=== PATIENT | female | born 1995 ===

== ENCOUNTER 2021-02-01 09:02 | Inpatient (IN) | payer SELFPAY ==
--- NOTE | 2021-02-01 12:26 | Anesthesia Consultation ---
Anesthesia Consult and Med Hx Date of service: 02/01/21 - Airway Anesthetic Teeth Evaluation: Good ROM Head & Neck: Adequate Mental/Hyoid Distance: Adequate Mallampati Class: Class II Intubation Access Assessment: Probably Good - Pulmonary Exam CTA: Yes - Cardiac Exam Cardiac Exam: RRR - Pre-Operative Health Status ASA Pre-Surgery Classification: ASA3 Proposed Anesthetic Plan: Spinal - Pulmonary Hx Asthma: No COPD: No Hx Pneumonia: No - Cardiovascular System Hx Hypertension: No - Central Nervous System Hx Seizures: No Hx Psychiatric Problems: No - Endocrine Hx Renal Disease: No Hx End Stage Renal Disease: No Hx Hypothyroidism: No Hx Hyperthyroidism: No - Hematic Hx Anemia: No Hx Sickle Cell Disease: No - Other Systems Hx Alcohol Use: No Hx Obesity: Yes
--- NOTE | 2021-02-01 12:26 | Anesthesia Day of Surgery ---
Anesthesia Day of Surgery - Day of Surgery Patient Examined: Yes Patient H&P Reviewed: Yes Patient is NPO: Yes
[2021-02-01] MEDS ORDERED: OXYTOCIN DRIP 30 UNITS/500 ML BAG IV SCH (13:00)
[2021-02-01] MEDS ORDERED: FAMOTIDINE 20 MG/2 ML INJ IV ONE (13:14)
[2021-02-01] MEDS ORDERED: BICITRA ORAL LIQD 30ML PO ONE (13:14)
[2021-02-01] MEDS ORDERED: METOCLOPRAMIDE 10 MG/2 ML INJ IV ONE (13:14)
[2021-02-01] MEDS ORDERED: ceFAZolin/Water 2 GM/20 ML 2 GM/20 ML SYRINGE IV ONE (13:51)
[2021-02-01] MEDS ORDERED: dexAMETHasone 20 MG/5 ML VIAL ONE (14:03)
[2021-02-01] MEDS ORDERED: SODIUM CHLORIDE 0.9% 100 ML ONE (14:03)
[2021-02-01] MEDS ORDERED: PHENYLEPHRINE 10 MG/1 ML INJ SDV ONE (14:03)
[2021-02-01] MEDS ORDERED: BUPIVACAINE/PF (0.5%) 5 MG/1 ML 30 ML VIAL INFILTRATI ONE (14:03)
[2021-02-01] MEDS ORDERED: ONDANSETRON 4 MG/2 ML INJ ONE (14:03)
[2021-02-01] MEDS: LACTATED RINGERS 1,000 ML IV SCH ×2 (14:03→17:21)
[2021-02-01] MEDS ORDERED: KETOROLAC 30 MG/1 ML INJ ONE (14:03)
--- NOTE | 2021-02-01 14:12 | History and Physical Report ---
History of Present Illness Date of examination: 02/01/21 Date of admission: 02/01/21 09:02 Chief complaint: elective repeat section at term Past History Past Surgical History: section Family/Genetic History: none Social history: no significant social history - Obstetrical History Expected Date of Delivery: 02/07/21 Actual Gestation: 39 Week(s) 1 Day(s) : 2 Para: 1 Medications and Allergies Allergies Allergy/AdvReac Type Severity Reaction Status Date / Time No Known Allergies Allergy Unverified 02/01/21 11:12 Home Medications Medication Instructions Recorded Confirmed Last Taken Type Ibuprofen [Motrin] 600 mg PO Q8H PRN #60 tablet 02/01/21 Unknown Rx oxyCODONE /ACETAMINOPHEN [Percocet 1 tab PO Q6HR PRN #20 tablet 02/01/21 Unknown Rx 5/325] Active Meds: Active Medications Lactated Ringer's (Lactated Ringers) 1,000 mls @ 2,250 mls/hr IV PREOP ALLYSSA Stop: 02/02/21 14:42 Last Admin: 02/01/21 14:03 Dose: 2,250 mls/hr Documented by: Oxytocin/Sodium Chloride (Pitocin/Ns 30 Unit/500ml) 30 units in 500 mls @ 0 mls/hr IV TITR ALLYSSA; Protocol - Vital Signs Vital signs: Vital Signs Pulse Pulse Ox 87 99 02/01/21 10:04 02/01/21 10:04 Temp Pulse Resp BP Pulse Ox 98.4 F 83 16 120/79 98 02/01/21 10:24 02/01/21 13:49 02/01/21 10:24 02/01/21 10:24 02/01/21 13:49 - Physical Exam Breasts: Positive: deferred Cardiovascular: Regular rate Lungs: Positive: Clear to auscultation Abdomen: Positive: normal appearance, soft, normal bowel sounds Vulva: both: normal Vagina: Positive: normal moisture Uterus: Positive: enlarged (39cm) Adnexa: both: normal Anus/Rectum: Positive: normal perianal skin Extremities: Positive: normal Deep Tendon Reflex Grade: Normal +2 - Obstetrical FHR: category 1 Results All other labs normal. 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
--- NOTE | 2021-02-01 14:13 | Procedure Note ---
OB Delivery Note - Delivery Date of Delivery: 02/01/21 Surgeon: KULWINDER CAREY - Section Postop diagnosis: same section procedure: repeat low transverse Disposition: PACU Complications: none Narrative: Preop diagnosis: IUP at 39.1 weeks, previous sectionx1 for elective repeat section Postop diagnosis: Same,delivered Procedure: Repeat low transverse section via Pfannenstiel incision Surgeon: Dr. Kulwinder Carey Anesthesia spinal Complications none EBL 1000ml IV fluids 1000mL Urine output 200mL, clear Drains Fournier to gravity Findings: Viable male with weight 4394gm and 8/9, normal uterus tubes and ovaries bilaterally Procedure: Patient was consented in OB triage, taken to the operating room where she received excellent spinal anesthesia. She was then placed in the dorsal supine position with a leftward tilt. The abdomen was prepped and draped in a sterile fashion, and a timeout was verified. Adequate anesthesia was confirmed prior to the skin incision. A Pfannenstiel skin incision was made with a scalpel taken down to the underlying structures and the fascia was in cised in the midline. The incision was extended laterally with curved Alcantara scissors, the superior and inferior aspects of the fascial incisions were grasped with Svitlana clamps and the rectus muscles dissected sharply. The abdomen was entered bluntly in the midline carried down inferiorly with good visualization of the bladder. The vesicouterine peritoneum was tented with Austrian forceps and incised in the midline with Metzenbaum scissors and the vesicouterine peritoneum taken down sharply. The uterine incision was then made sharply with a scalpel. The inferior and superior aspect of the uterine incisions were extended bluntly, the baby's head was delivered atraumatically. The remainder of the delivery was uncomplicated, no nuchal cord. The cord was clamped and cut and baby handed to waiting NICU team. An intact placenta with three-vessel cord delivered manually. The uterus was then cleared of all clots and debris and the uterus exteriorized. The uterine incision was closed in 2 layers of 0 vicryl with excellent hemostasis. The abdomen was then irrigated with warm normal saline and the uterus placed back into the abdomen atraumatically. A second look at the uterine incision assured hemostasis. The peritoneum was closed with 3-0 Vicryl, the rectus muscles approximated with 3-0 Vicryl, and the fascia closed with 0 Vicryl in the usual fashion. The subcuticular structures were closed with interrupted sutures of 3-0 Vicryl and the skin closed with 4-0 Monocryl. A pressure dressing was applied. All sponge needle and instrument counts were correct x2. There were no complications. Mom and baby stable to PACU. EBL 1000 mL Sho Carey MD - Infant A at 1 minute: 8 at 5 minutes: 9 Infant Gender: Male (4394gms)
[2021-02-01 14:15] LABS: Basophils % (Auto) 0.3 % (0.0-1.8); Eosinophils # (Auto) 0.1 K/mm3 (0.0-0.4); Hematocrit 39.7 % (30.3-42.9); Hemoglobin 12.8 gm/dl (10.1-14.3); Lymphocytes # (Auto) 1.4 K/mm3 (1.2-5.4); Lymphocytes % (Auto) 27.4 % (13.4-35.0); Mean Corpuscular HGB Conc 32 % (30-34); Mean Corpuscular Volume 94 fl (79-97); Monocytes # (Auto) 0.5 K/mm3 (0.0-0.8); Monocytes % (Auto) 8.9 % (0.0-7.3); Platelet Count 160 K/mm3 (140-440); Red Blood Count 4.24 M/mm3 (3.65-5.03); Red Cell Distribution Width 13.8 % (13.2-15.2)
[2021-02-01] MEDS ORDERED: KETAMINE/STERILE WATER 50 MG/ML SYRINGE ONE (15:30)
[2021-02-01] MEDS ORDERED: METHYLERGONOVINE MALEATE 0.2 MG/ML VIAL IM ONE (15:48)
[2021-02-01] MEDS ORDERED: MIDAZOLAM 2 MG/2 ML INJ ONE (15:54)
[2021-02-01] MEDS ORDERED: HYDROcodone/ACETAMINOPHEN 5-325 MG TAB PO PRN (16:31)
[2021-02-01] MEDS ORDERED: IBUPROFEN 600 MG TAB PO PRN (16:31)
[2021-02-01] MEDS ORDERED: KETOROLAC 30 MG/1 ML INJ IV PRN ×2 (16:31)
[2021-02-01] MEDS ORDERED: NALOXONE 0.4 MG/1 ML INJ IV PRN (16:31)
[2021-02-01] MEDS ORDERED: WITCH HAZEL/ GLYCERIN PAD TP PRN (16:31)
[2021-02-01] MEDS ORDERED: LANOLIN/ZINC/DIMETHICONE (LANSINOH) 7 GM TP PRN (16:31)
[2021-02-01] MEDS ORDERED: MORPHINE 4 MG/1 ML INJ IV PRN (16:31)
--- NOTE | 2021-02-02 05:37 | Progress Note ---
Assessment and Plan POD#1 C/Section doing well 1. Routine post op care, encouraged to ambulate in room 2. For dressing removal tomorrow 3. CBC to be drawn this am All questions encouraged and answered Subjective Date of service: 02/02/21 Principal diagnosis: POD#1 C/S Interval history: Pt has no complaints. Pt has passed flatus, voided without difficulty, vag bleed less than a period and pain controlled with meds. Objective - Constitutional Vitals: Vital Signs - 12hr 02/01/21 02/01/21 02/01/21 18:00 20:10 22:55 Temperature 98.4 F 97.4 F L Pulse Rate 61 62 Respiratory 18 18 20 Rate Blood Pressure 116/74 Blood Pressure 118/65 [Right] O2 Sat by Pulse 98 100 Oximetry O2 Sat by Pulse 98 Oximetry [ Anterior Bilateral Throughout] 02/02/21 02/02/21 00:57 04:59 Temperature 97.9 F 97.8 F Pulse Rate 71 69 Respiratory 20 20 Rate Blood Pressure 99/56 107/72 Blood Pressure [Right] O2 Sat by Pulse 97 97 Oximetry O2 Sat by Pulse Oximetry [ Anterior Bilateral Throughout] General appearance: Present: no acute distress - Respiratory Respiratory effort: normal - Cardiovascular Rhythm: regular Extremities: No edema - Gastrointestinal General gastrointestinal: Present: soft, non-tender, other (Dressing C/D/I) - Genitourinary Female genitourinary: other (Lochia scant; Fundus firm 1cm below umbilicus) - Integumentary Integumentary: warm, dry - Neurologic Neurologic: moves all extremities - Psychiatric Psychiatric: cooperative - Labs CBC & Chem 7: 02/01/21 10:25 Labs: Abnormal lab results 02/01/21 Range/Units 10:25 [place] % (Auto) 8.9 H (0.0-7.3) % Medications & Allergies - Medications Allergies/Adverse Reactions: Allergies No Known Allergies Allergy (Unverified 02/01/21 11:12) Home Medications: Home Medications Medication Instructions Recorded Confirmed Last Taken Type Ibuprofen [Motrin] 600 mg PO Q8H PRN #60 tablet 02/01/21 Unknown Rx oxyCODONE /ACETAMINOPHEN [Percocet 1 tab PO Q6HR PRN #20 tablet 02/01/21 Unknown Rx 5/325] Active Medications: Generic Name Dose Route Start Last Admin Trade Name Freq PRN Reason Stop Dose Admin Hydrocodone Bitart/Acetaminophen 1 each 02/01/21 16:31 Hydrocodone/Acetaminophen 5-325 Mg Tab PO Q6H PRN Pain, Moderate (4-6) Lactated Ringer's 1,000 mls @ 2,250 mls/hr 02/01/21 14:15 02/01/21 17:21 Lactated Ringers IV 02/02/21 14:42 125 mls/hr PREOP ALLYSSA Administration Oxytocin/Sodium Chloride 30 units in 500 mls @ 0 mls/hr 02/01/21 13:00 Pitocin/Ns 30 Unit/500ml IV TITR ALLYSSA Protocol As Directed Ibuprofen 800 mg 02/01/21 16:31 Ibuprofen 800 Mg Tab PO Q6H PRN Pain, Moderate (4-6) Ibuprofen 600 mg 02/01/21 16:31 Ibuprofen 600 Mg Tab PO Q6H PRN Pain, Mild (1-3) Ketorolac Tromethamine 15 mg 02/01/21 16:31 Ketorolac 30 Mg/1 Ml Inj IV 02/06/21 16:30 Q6H PRN Pain, Mild (1-3) Ketorolac Tromethamine 30 mg 02/01/21 16:31 02/01/21 22:55 Ketorolac 30 Mg/1 Ml Inj IV 02/06/21 16:30 30 mg Q6H PRN Administration Pain, Moderate (4-6) Morphine Sulfate 4 mg 02/01/21 16:31 Morphine 4 Mg/1 Ml Inj IV Q4H PRN Pain , Severe (7-10) Multi-Ingredient Ointment 1 applic 02/01/21 16:31 Lanolin/Zinc/Dimethicone (Lansinoh) 7 Gm TP PRN PRN dryness/cracking Naloxone HCl 0.1 mg 02/01/21 16:31 Naloxone 0.4 Mg/1 Ml Inj IV Q2MIN PRN Res Rate </= 8 or 02 SAT < 92% Sodium Chloride 10 ml 02/01/21 17:00 Sodium Chloride 0.9% 10 Ml Flush Syringe IV PRN ALLYSSA Witch Kaitlin/Glycerin 1 each 02/01/21 16:31 Witch Kaitlin/ Glycerin Pad TP PRN PRN Hemorrhoids/cleansing/soothing
[2021-02-02 06:13] LABS: Hematocrit 34.3 % (30.3-42.9); Hemoglobin 11.4 gm/dl (10.1-14.3)
--- NOTE | 2021-02-02 09:52 | Post Anesthesia Evaluation ---
- Post Anesthesia Evaluation Patient Participated: Yes Airway Patent: Yes Stable Respiratory Function: Yes Nausea/Vomiting: No Temp > 96.8F: Yes Pain Manageable: Yes Adequeate Hydration: Yes Anesthesia Complications: No Block Receding Appropriately: Yes
[2021-02-02] MEDS: IBUPROFEN 800 MG TAB PO PRN ×2 (11:08→17:18)
[2021-02-02] MEDS ORDERED: FLU VACC QUAD 2021-22(6MOS UP)/PF 60 MCG/0.5 ML SYRINGE IM ONE (12:00)
--- NOTE | 2021-02-03 04:03 | Discharge Summary ---
Providers - Providers Date of Admission: 02/01/21 09:02 Date of discharge: 02/03/21 Attending physician: KULWINDER CAREY MD Primary care physician: KULWINDER CAREY MD Hospitalization Reason for admission: section Delivery: Procedure: repeat low transverse Incision: normal, dry, intact, warm, dressed Other procedures: none complications: none Discharge diagnosis: IUP at term delivered Condition at discharge: Stable Disposition: 01 HOME / SELF CARE / HOMELESS Plan - Discharge Medications Prescriptions: Ibuprofen [Motrin] 600 mg PO Q8H PRN #60 tablet PRN Reason: Pain oxyCODONE /ACETAMINOPHEN [Percocet 5/325] 1 tab PO Q6HR PRN #20 tablet PRN Reason: Pain - Provider Discharge Summary Activity: no sex for 6 weeks Diet: routine Instructions: routine Additional instructions: [] Smoking cessation referral if applicable(refer to patient education folder for contact #) [] Refer to [facility]'s [facility] Booklet Call your doctor immediately for: * Fever > 100.5 * Heavy vaginal bleeding ( >1 pad per hour) * Severe persistent headache * Shortness of breath * Reddened, hot, painful area to leg or breast * Drainage or odor from incision. * Keep incision clean and dry at all times and follow doctor's instructions regarding bathing/showering - Follow up plan Follow up: KULWINDER CAREY MD [Primary Care Provider] - 14 Days
[2021-02-03] MEDS: IBUPROFEN 800 MG TAB PO PRN (11:56)
[2021-02-03 12:48] VITALS: BP 110/79
== END 2021-02-03 13:00 | disposition home or self-care (01) | DRG 788 ==
LOC: APU 09:02 → OB 18:15
PROVIDERS: ADMIT Obstetrics & Gynecology; ATTEND Obstetrics & Gynecology
PROC: 10D00Z1 Extraction of Products of Conception, Low, Open Approach (ICD-10-PCS; principal; 2021-02-01)
DX: O34.211 Maternal care for low transverse scar from previous cesarean delivery (principal); Z37.0 Single live birth; Z3A.39 39 weeks gestation of pregnancy; Z20.822 Contact with and (suspected) exposure to COVID-19
CPT/HCPCS: 36415; 85014; 85018; 85025; 86850; 86900; 86901; G0378; J3490; J7121; J1100; J1885; J2250; J2370; J2405; J2765; J7120; U0003